=== PATIENT | female | born 1965 | race Caucasian/White ===

== ENCOUNTER 2022-05-20 09:01 | Emergency (ER) | payer OTHER, SELFPAY ==
--- NOTE | ~2022-05-20 | US_ITS ---
EXAMINATION: US abdomen limited DATE: 05/20/2022 10:46 INDICATION: Abdominal pain. Diarrhea. TECHNIQUE: Multiple grayscale and Doppler ultrasound images of the abdomen were obtained. COMPARISON: Chest CT 02/28/2014 FINDINGS: The visualized portions of the head and body of the pancreas are normal. There is diffuse h epatic steatosis. There is normal flow in main portal vein. The gallbladder is normal in size. No gal lstones or gallbladder wall thickening. There is no sonographic Soto sign. The common duct is kenyatta l and measures 5 mm. IMPRESSION: 1. Diffuse hepatic steatosis. Reviewed, dictated and finalized at location A.
--- NOTE | ~2022-05-20 | CT_ITS ---
EXAMINATION: CT abdomen pelvis w con DATE: 05/20/2022 11:09 INDICATION: Upper abdominal pain. TECHNIQUE: Computed tomography (CT) of the abdomen and pelvis was performed with 100 mL Omnipaque 350 intravenous contrast. Automated exposure control and iterative reconstruction technique were employe d. The dose-length product was 935.87 mGy-cm. COMPARISON: CT abdomen and pelvis 01/06/2012 FINDINGS: The visualized portions of the lung bases demonstrate mild atelectasis. No pleural effusion . The heart size is normal. No pericardial effusion. The liver, gallbladder, spleen, pancreas, adrena l glands, and right kidney are normal. There is a 2 mm stone in left kidney. There are no dilated loo ps of bowel. The appendix is normal. There are no pathologically enlarged lymph nodes. There is no fr ee intraperitoneal fluid. There is severe lower lumbar spondylosis. IMPRESSION: 1. Small nonobstructing left kidney stone. Reviewed, dictated and finalized at location A.
[2022-05-20 09:07] VITALS: BP 131/81; PULSE 67; RESP 19; TEMP 36.7; O2SAT 100
[2022-05-20 10:22] LABS: Basophils Percent Auto 0.5 % (0.2-1.2); Eosinophils Absolute Auto 0.2 K/mm3 (0-0.3); Eosinophils Percent Auto 2.9 % (0-4.4); Hematocrit 48.7 % (37.0-47.0); Hemoglobin 15.9 g/dL (12.0-15.0); Immature Granulocyte Absolute 0.01 K/mm3 (0.00-0.031); Immature Granulocyte Percent A 0.2 % (0-0.5); Lymphocytes Absolute Auto 2.03 K/mm3 (0.9-3.2); Lymphocytes Percent Auto 31.5 % (18.3-44.2); Mean Corpuscular HGB Conc 32.6 g/dl (32-36); Mean Corpuscular Hemoglobin 30.3 pg (26-34); Mean Corpuscular Volume 92.9 fl (80-100); Mean Platelet Volume 10.3 fl (7.4-10.4); Monocytes Absolute Auto 0.7 K/mm3 (0.1-0.6); Monocytes Percent Auto 10.1 % (2.6-8.5); Neutrophils Absolute Auto 3.5 K/mm3 (1.3-6.7); Neutrophils Percent Auto 54.8 % (45.5-73.1); Platelet Count Result 244 k/mm3 (150-375); Red Blood Count 5.24 M/mm3 (4.2-5.4); Red Cell Distribution Width 12.3 % (11.5-14.5); White Blood Count 6.5 K/mm3 (4.5-10.0)
--- NOTE | 2022-05-20 10:23 | ED.GENADULT ---
HPI - General Adult General Chief complaint: Abdominal Pain Stated complaint: Abdomen pain Time Seen by Provider: 05/20/22 09:58 Source: RN notes reviewed History of Present Illness HPI narrative: Patient presents emergency department from home for abdominal pain. Patient dates symptoms began 5 days ago. States pain is located in the epigastric region and does not radiate described as sharp and stabbing in nature. States has been associate with nausea vomiting and diarrhea patient states that she has been having ongoing episodes of nausea and vomiting as well as diarrhea throughout the 5 days she states that nothing makes his symptoms better or worse. She denies any fevers or chills chest pain shortness of breath or any other symptoms states she is not taking pain medication today Related Data Allergies Allergy/AdvReac Type Severity Reaction Status Date / Time codeine AdvReac Unknown Nausea and Verified 03/08/22 09:43 Vomiting Review of Systems Review of Systems: Gen.: Denies fevers or chills ENT: Denies congestion Respiratory: Denies shortness of breath or cough CV: Denies chest pain or palpitations GI: See HPI denies burning, urgency, frequency or hematuria Musculoskeletal: Denies back pain or muscle pain Neuro: Denies numbness, tingling, weakness or focal weakness Skin: Denies rash Except as documented, all other systems reviewed and negative [facility] Past Medical History Medical History Anemia Asthma Bronchitis Depression Ear infection Multiple as a child Elevated BP without diagnosis of hypertension HPV (human papilloma virus) infection Peptic ulcer Plantar fasciitis Pneumonia Spontaneous pneumothorax x2 Surgical History Surgical History History of hysterectomy History of surgery on arm rt arm at 6 y/o History of tonsillectomy History of tracheostomy History of tubal ligation Family History Family History Mother Hypertension Family history of primary malignant neoplasm of liver Family history of coronary artery disease Father Family history of coronary artery disease Social History Social History Social History: Smoking status: Never smoker Second hand tobacco smoke exposure: No Alcohol intake: current Alcohol use details: Socially Substance use: never Substance use type: does not use Living arrangements: with family Occupation/Education: occupation Gender identity (if verbalized by the patient): Female Sexual Orientation (if Verbalized by the Patient): Straight or Heterosexual Exam Narrative: APPEARANCE: No acute distress, nontoxic, resting in bed HEENT: Normocephalic, atraumatic, OMM RESPIRATORY: No respiratory distress, clear to auscultation bilaterally with no rhonchi wheezing or rales CARDIOVASCULAR: RRR s murmur ABDOMINAL: Soft nondistended tender palpation epigastric and right upper quadrant no tenderness in left upper quadrant, left lower quadrant and right lower quadrant no rebound or guarding MUSCULOSKELETAl: Moves all extremities. No clubbing, cyanosis or edema. NEURO: Awake and alert. Following commands, speech normal, no focal deficits SKIN:: Warm, dry. Normal Color PSYCHIATRIC: Normal affect/mood Course Course Emergency Course: Patient states pain is greatly improved following IV medication and then resolved following GI cocktail patient states that they are feeling much better at this time. States abdominal pain has resolved. Repeat abdominal exam shows the patient's abdomen to be soft and nontender. Discussed with patient results of workup and diagnosis. Discussed need for follow-up with primary care physician, reasons to return to the emergency department in proper use of medication. Patient understands and agrees to cur
[2022-05-20 10:24] LABS: Appearance Urine Clear (Clear); Bilirubin Urine Negative (Negative); Blood Urine Negative (Negative); Color Urine Yellow (Yellow); Glucose Urine UA Negative (Negative); Ketones Urine Negative (Negative); Leukocyte Esterase Ur Negative LEU/UL (Negative); Nitrate Urine Negative (Negative); Protein Urine Negative (Negative); Specific Grav Ur 1.023 (1.001-1.035); Urobilinogen Urine 0.2 mg/dL (<2.0); pH Urine 5.5 (5.0-9.0)
[2022-05-20 10:31] LABS: Add Urine Microscopic? NO
[2022-05-20 10:41] LABS: Alanine Aminotransferase 70 U/L (6-35); Albumin Level 4.7 g/dL (3.5-5.1); Alkaline Phosphatase 101 U/L (38-126); Anion Gap 6 mmol/L (8-16); Aspartate Amino Transferase 37 U/L (14-36); Bilirubin,Total 0.5 mg/dL (0.2-1.3); Blood Urea Nitrogen 15 mg/dL (7-17); Calcium 9.3 mg/dL (8.4-10.2); Carbon Dioxide 29 mmol/L (22-30); Chloride 108 mmol/L (98-107); Estimated CRCL calculation 78 ml/min; Estimated Glomerular Filt Rate > 60; Glucose 88 mg/dL (65-110); Lipase 80 U/L (23-300); Potassium 3.7 mmol/L (3.4-5.0); Sodium 143 mmol/L (137-145)
[2022-05-20] MEDS: FAMOTIDINE 20 MG/2 ML VIAL IV PUSH (10:45)
[2022-05-20] MEDS: SODIUM CHLORIDE 0.9% IV 1,000 ML 999 ML IV CONT (10:45)
[2022-05-20] MEDS: KETOROLAC 30 MG/ML VIAL (*BKC) IV PUSH (10:45)
[2022-05-20] MEDS: ONDANSETRON INJ 4 MG/2 ML VIAL IV PUSH (10:45)
[2022-05-20 13:07] VITALS: BP 142/87; PULSE 73; RESP 18; O2SAT 100
== END 2022-05-20 13:20 | disposition home or self-care (01) ==
PROVIDERS: Emergency Provider Emergency Medicine; PCP Family Medicine
DX: R10.13 Epigastric pain (principal); R11.2 Nausea with vomiting, unspecified; R19.7 Diarrhea, unspecified; J45.909 Unspecified asthma, uncomplicated; Z79.51 Long term (current) use of inhaled steroids
CPT/HCPCS: 36415; 74177; 76705; 80053; 81003; 83690; 85025; 96361; 96374; 96375; 99284; A9270; J1885; J2405; J7030; Q9967

== ENCOUNTER 2022-08-26 07:48 | Outpatient (CLI) | payer OTHER, SELFPAY ==
--- NOTE | ~2022-08-26 | MM_ITS ---
EXAMINATION: MM screening [facility] BI w laci HISTORY: Screening TECHNIQUE: Craniocaudal and mediolateral oblique 3-D tomosynthesis images were obtained and synthetic 2-D images were generated. CAD analysis was submitted and interpreted. COMPARISON: Comparison to multiple prior studies sequentially, with oldest reviewed study dated 08/2013. BREAST PARENCHYMAL COMPOSITION: Breast composed of scattered areas of fibroglandular density. FINDINGS: There are bilateral benign-appearing breast asymmetries/masses which are diminished in size and density compared with prior examinations. There is no evidence of suspicious mass, calcification , or architectural distortion to suggest malignancy in either breast. There has been no suspicious in terval change. IMPRESSION: 1. No mammographic evidence of malignancy. 2. Recommend routine screening mammography in one year. BI-RADS Category 2: Benign finding(s). Reviewed, dictated and finalized at location A.
== END 2022-08-26 07:49 | disposition home or self-care (01) ==
LOC: ANHIMG 07:50
PROVIDERS: PCP Family Medicine; Visit Provider Physician Assistant
DX: Z12.31 Encounter for screening mammogram for malignant neoplasm of breast (principal)
CPT/HCPCS: 77063; 77067

== ENCOUNTER 2023-01-14 16:48 | Emergency (ER) | payer OTHER, SELFPAY ==
--- NOTE | ~2023-01-14 | CT_ITS ---
EXAMINATION: CT brain wo con DATE: 01/14/2023 21:59 INDICATION: elevated blood pressure, dizziness . TECHNIQUE: Computed tomography (CT) of the head was performed without intravenous contrast. The mA wa s adjusted according to patient size. Iterative reconstruction technique was employed. The dose-lengt h product was 605.33 mGy-cm. COMPARISON: None. FINDINGS: No acute intracranial hemorrhage or extra-axial fluid collection. No hydrocephalus, mass, or herniation. No acute ischemic infarct. Unremarkable dural venous sinus attenuation. No acute osseous abnormality. The aerated spaces are clear. IMPRESSION: No acute intracranial process. Reviewed, dictated and finalized at location K. ZING MACHINE OPERATOR HEAD END
--- NOTE | ~2023-01-14 | XR_ITS ---
EXAMINATION: XR chest 2V Exam Date/Time: 01/14/2023 23:10 TRAUMA DOCTOR HISTORY: dizziness HIGH BP Comparison: 04/11/2014. RESULT: Lines, tubes, and devices: None. Lungs and pleura: Clear. Cardiomediastinal silhouette: Stable. Other: No acute osseous or upper abdominal finding. IMPRESSION: No acute cardiopulmonary process. Reviewed, dictated and finalized at location K. MA DOCTOR
[2023-01-14 16:55] VITALS: BP 142/91; PULSE 69; RESP 20; TEMP 36.1; O2SAT 100
--- NOTE | 2023-01-14 16:59 | ECG_ITS ---
Measurements Intervals [place] Rate: 62 P: 57 MA: 155 QRS: 77 QRSD: 89 T: 80 QT: 413 QTc: 422 Interpretive Statements SINUS RHYTHM LOW QRS VOLTAGE IN PRECORDIAL LEADS [QRS DEFLECTION < 1.0 mV IN CHEST LEADS] NONSPECIFIC T-WAVE ABNORMALITY COMPARED TO ECG 07/20/2018 19:35:06 T-WAVE ABNORMALITY NOW PRESENT Electronically Signed On 01-14-2023 20:23:26 CUTTER INSPECTOR by Opal Handley M.D.
[2023-01-14 21:47] VITALS: BP 148/92; PULSE 62; RESP 18; O2SAT 100
[2023-01-14 22:17] LABS: Basophils Percent Auto 0.4 % (0.2-1.2); Eosinophils Absolute Auto 0.2 K/mm3 (0-0.3); Eosinophils Percent Auto 2.1 % (0-4.4); Hematocrit 42.6 % (37.0-47.0); Hemoglobin 14.1 g/dL (12.0-15.0); Immature Granulocyte Absolute 0.03 K/mm3 (0.00-0.031); Immature Granulocyte Percent A 0.4 % (0-0.5); Lymphocytes Absolute Auto 2.97 K/mm3 (0.9-3.2); Lymphocytes Percent Auto 34.8 % (18.3-44.2); Mean Corpuscular HGB Conc 33.1 g/dl (32-36); Mean Corpuscular Hemoglobin 30.1 pg (26-34); Mean Platelet Volume 10.2 fl (7.4-10.4); Monocytes Absolute Auto 0.8 K/mm3 (0.1-0.6); Monocytes Percent Auto 8.9 % (2.6-8.5); Neutrophils Absolute Auto 4.6 K/mm3 (1.3-6.7); Neutrophils Percent Auto 53.4 % (45.5-73.1); Platelet Count Result 255 k/mm3 (150-375); Red Blood Count 4.68 M/mm3 (4.2-5.4); White Blood Count 8.5 K/mm3 (4.5-10.0)
[2023-01-14 22:27] LABS: Anion Gap 6 mmol/L (8-16); Blood Urea Nitrogen 13 mg/dL (7-17); Calcium 9.3 mg/dL (8.4-10.2); Carbon Dioxide 28 mmol/L (22-30); Chloride 107 mmol/L (98-107); Estimated CRCL calculation 78 ml/min; Estimated Glomerular Filt Rate > 60; Glucose 124 mg/dL (65-110); Potassium 4.1 mmol/L (3.4-5.0); Sodium 141 mmol/L (137-145)
[2023-01-14 22:48] LABS: Troponin I < 0.012 ng/mL (0.000-0.034)
--- NOTE | 2023-01-14 23:06 | ED.RECABL ---
HPI - Recheck/Abnormal Lab/Rx General Chief Complaint: Recheck/Abnormal Lab/Rx Stated Complaint: ELEVATED BP,DIZZINESS Time Seen by Provider: 01/14/23 21:47 Source: patient Mode of arrival: ambulatory Limitations: no limitations History of Present Illness HPI narrative: This is a 57 year old female that presents to the ER for elevated blood pressure. Reports yesterday she started to feel dizzy. She took her blood pressure and it was elevated. Reports she had return of symptoms today with worsening blood pressure which prompted her to be seen. She does not take blood pressure medication regularly. Reports history of a similar occurrence last year, but her blood pressure was monitored and normalized. She did not have to be started on an antihypertensive. Reports no current dizziness or symptoms. Denies chest pain, shortness of breath, or lower extremity edema. Related Data Allergies Allergy/AdvReac Type Severity Reaction Status Date / Time codeine AdvReac Unknown Nausea and Verified 03/08/22 09:43 Vomiting Review of Systems Review of Systems: CONSTITUTIONAL: Denies fever EYES: Denies visual changes CARDIOVASCULAR: Denies chest pain, or edema. RESPIRATORY: Denies dyspnea. GASTROINTESTINAL: Denies vomiting NEUROLOGIC: Denies numbness, or weakness. All systems reviewed & are unremarkable except as noted in HPI and below PMFSH Past Medical History Medical History Anemia Asthma Bronchitis Depression Ear infection Multiple as a child Elevated BP without diagnosis of hypertension HPV (human papilloma virus) infection Peptic ulcer Plantar fasciitis Pneumonia Spontaneous pneumothorax x2 Surgical History Surgical History History of hysterectomy History of surgery on arm rt arm at 6 y/o History of tonsillectomy History of tracheostomy History of tubal ligation Family History Family History Mother Hypertension Family history of primary malignant neoplasm of liver Family history of coronary artery disease Father Family history of coronary artery disease Social History Social History Social History: Smoking status: Never smoker Second hand tobacco smoke exposure: No Alcohol intake: current Alcohol use details: Socially Substance use: never Substance use type: does not use Living arrangements: with family Occupation/Education: occupation Gender identity (if verbalized by the patient): Female Sexual Orientation (if Verbalized by the Patient): Straight or Heterosexual Exam Narrative: GENERAL: Well-appearing, well-nourished, and in no acute distress. HEAD: Normocephalic, atraumatic. EYES: PERRLA and EOMI. ENT: Nares clear, no rhinorrhea or epistaxis. Mucous membranes moist. Oropharynx without tonsillar hypertrophy exudate or other lesions. Bilateral TMs pearly hickman non-bulging NECK: Supple. No adenopathy or masses. No JVD CHEST: Clear to auscultation. No respiratory distress. No wheezes rales or rhonchi HEART: Regular rate and rhythm. No murmur heard. Normal peripheral pulses. EXTREMITIES: Normal range of motion. No edema. SKIN: Warm, dry, no rash. NEURO: No focal deficits. Alert and oriented x3. Cranial nerves 2-12 grossly intact. Normal [id number] PSYCH: Normal mood and affect Course Course Emergency Course: patient and family updated on workup and agree with plan of care Vital Signs Vital signs: Vital Signs Temperature 97 F L 01/14/23 16:55 Pulse Rate 69 01/14/23 16:55 Respiratory Rate 20 01/14/23 16:55 Blood Pressure 142/91 H 01/14/23 16:55 Pulse Oximetry 100 01/14/23 16:55 Oxygen Delivery Room Air 01/14/23 16:55 Temperature 97 F L 01/14/23 16:55 Pulse Rate 62 01/14/23 21:47 Respiratory Rate 18 01/14/23 2
[2023-01-14 23:49] VITALS: BP 138/88; PULSE 72; RESP 16; O2SAT 98
== END 2023-01-14 23:50 | disposition home or self-care (01) ==
PROVIDERS: Emergency Provider Physician Assistant; PCP Family Medicine
DX: R03.0 Elevated blood-pressure reading, without diagnosis of hypertension (principal); D64.9 Anemia, unspecified; J45.909 Unspecified asthma, uncomplicated; F32.A Depression, unspecified
CPT/HCPCS: 36415; 70450; 71046; 80048; 84484; 85025; 93005; 99284

== ENCOUNTER 2023-02-27 09:12 | Outpatient (CLI) | payer OTHER, SELFPAY ==
--- NOTE | ~2023-02-27 | US_ITS ---
EXAMINATION: US carotid duplex BI DATE: 02/27/2023 09:47 INDICATION: Encephalopathy with brain fog . Headache. TECHNIQUE: Grayscale, color Doppler, and pulsed Doppler images of the cervical carotid arteries were obtained. The degree of vessel stenosis is placed in one of the following categories: normal, <50%, 5 0-69%, >=70% but less than near-occlusion, near-occlusion, or total occlusion. Note that percent sten osis relative to normal distal artery lumen diameter is indirectly measured from velocity measurement s as described by Cesario, et al. Radiology 2003; 229:340-346. COMPARISON: None. FINDINGS: RIGHT: The right common carotid artery (CCA) peak systolic velocity (PSV) is 90 cm/s. The right internal car otid artery (ICA) PSV is 105 cm/s. The right ICA end-diastolic velocity (EDV) is 41 cm/s. The right I CA/CCA PSV ratio is 1.2. Grayscale and color Doppler images yield an estimate of <50% diameter reduct ion from plaque in the ICA. The external carotid artery (ECA) PSV is 87 cm/s. There is antegrade flow in the right vertebral artery. LEFT: The left CCA PSV is 114 cm/s. The left ICA PSV is 98 cm/s. The left ICA EDV is 43 cm/s. The left ICA/ CCA PSV ratio is 0.9. Grayscale and color Doppler images yield an estimate of <50% diameter reduction from plaque in the ICA. The ECA PSV is 99 cm/s. There is antegrade flow in the left vertebral artery . IMPRESSION: 1. <50% stenosis in the right internal carotid artery. 2. <50% stenosis in the left internal carotid artery. Reviewed, dictated and finalized at location A. PINNER
--- NOTE | ~2023-02-27 | NM_ITS ---
EXAMINATION: NM arina stress w perfusion DATE: 02/27/2023 12:10 INDICATION: Mixed hyperlipidemia. TECHNIQUE: Rest images were obtained following intravenous administration of 9.6 mCi Tc99m tetrofosmi n (Myoview). The patient was infused intravenously with Lexiscan (regadenoson). Then, 28.8 mCi Tc99m tetrofosmin (Myoview) was administered intravenously, and stress images were obtained. Data was recon structed into short axis and horizontal and vertical long axis SPECT images. Gated SPECT images were also obtained. COMPARISON: None. FINDINGS: There is no definite reversible or fixed perfusion abnormality to suggest ischemia or infar ction. There is no segmental wall motion abnormality. Left ventricular ejection fraction measures 6 6%. IMPRESSION: 1. No definite ischemia or infarct. 2. Normal left ventricular ejection fraction measuring 66%. Reviewed, dictated and finalized at location E. CONCENTRATOR
--- NOTE | 2023-02-27 09:35 | ECHO_ITS ---
Patient Info Name: Consuelo Bhakta Age: 57 years : 1965 Gender: Female Ht: 62 in Wt: 195 lbs BSA: 2.01 m2 HR: 63 bpm BP: 122 / 78 mmHg Technical Quality: Fair Exam Date: 02/27/2023 10:03 AM Exam Location: Echo Lab Patient Status: Outpatient Admit Date: 02/27/2023 Staff Ordering Physician: Sandra Zee PA-C Attending Provider: Sandra Zee PA-C Referring Physician: Saadia POPE; Exam Type: CA echo dop color flow w con Study Info Indications R06.00 - Dyspnea, unspecified Complete two-dimensional, color flow and Doppler transthoracic echocardiogram is performed with contrast to opacify the left ventricle and to improve the deliniation of the left ventricle endocardial borders. Contrast/Agitated Saline Contrast/Ag. Saline: Definity Amount: 1.00 ml Existing IV Access: Yes IV Access Condition: patent with no signs of infiltration Summary 1. Definity contrast administered improved wall motion interpretation. 2. Left ventricular chamber dimension is normal. 3. Left ventricular systolic function is normal, estimated at 60-65%. 4. The left ventricular diastolic function is grade I diastolic dysfunction. 5. E/e' 9 is minimally elevated. 6. Left atrial chamber dimension is mildly enlarged. 7. The aortic valve is not well visualized. Cannot determine number of aortic valve leaflets. 8. There is mild aortic valve stenosis based on a peak velocity of 134.76 cm/s, mean gradient of 4 mmHg, and aortic valve area of 1.91 cm2. Left Ventricle Definity contrast administered improved wall motion interpretation. E/e' 9 is minimally elevated. Left ventricular chamber dimension is normal. Left ventricular systolic function is normal, estimated at 60-65%. The left ventricular diastolic function is grade I diastolic dysfunction. Right Ventricle Right ventricular systolic function is normal and with normal TAPSE 2.0 cm. Right ventricular chamber dimension is normal. Left Atria Left atrial chamber dimension is mildly enlarged. Right Atria Right atrial chamber dimension is normal. Aortic Valve The aortic valve is not well visualized. Cannot determine number of aortic valve leaflets. There is mild aortic valve stenosis based on a peak velocity of 134.76 cm/s, mean gradient of 4 mmHg, and aortic valve area of 1.91 cm2. There is no aortic valve regurgitation. Pulmonic Valve There is no pulmonic regurgitation. Mitral Valve There is no mitral valve stenosis. There is no mitral valve regurgitation. Tricuspid Valve There is no tricuspid valve regurgitation. Pericardium/Pleural There is no pericardial effusion. Inferior Vena Cava Normal inferior vena cava with >50% collapse upon inspiration consistent with normal right atrial pressure, 5 mmHg. Aorta The aortic root size at the sinus of Valsalva is normal. Left Ventricular Outflow Tract Name Value Normal LVOT 2D LVOT Diameter 2.03 cm LVOT Doppler LVOT Peak Velocity 80.52 cm/s LVOT Peak Gradient 3 mmHg LVOT Mean Gradient 1 mmHg LVOT VTI 19.92 cm LVOT VTI/AV VTI Ratio
--- NOTE | 2023-02-27 09:39 | EST_ITS ---
Patient Info Name: Consuelo Bhakta Age: 57 years : 1965 Gender: Female Ht: 62 in Wt: 195 lbs BSA: 2.01 m2 Exam Date: 02/27/2023 11:15 AM Exam Location: Echo Lab Patient Status: Outpatient Admit Date: 02/27/2023 Staff Ordering Physician: Sandra Zee PA-C Attending Provider: Sandra Zee PA-C Exercise Technologist: Anne Marie Olguin RDCS Exercise Physician: Blair Cartagena DO Exam Type: CA stress arina w NM Study Info Indications R07.89 - Other chest pain A treadmill exercise stress test was performed. Summary 1. 1. Negative lexiscan stress test for ischemic ST changes by ECG criteria. 2. 2. Stable hemodynamics throughout the test. 3. 3. Nuclear scan to follow and will be reported separately. Please correlate with it. 4. 4. Patient informed of the above results. Protocol: Lexiscan Stress ECG Details Stage: REST Duration (min): 1 min : 5 sec HR (bpm): 71 SBP (mmHg): 107 DBP (mmHg): 74 Stage: REST Duration (min): 4 min : 26 sec HR (bpm): 71 SBP (mmHg): 107 DBP (mmHg): 74 Stage: STAGE 1 Duration (min): 1 min : 0 sec HR (bpm): 106 SBP (mmHg): 114 DBP (mmHg): 75 Stage: RECOVERY Duration (min): 1 min : 0 sec HR (bpm): 115 SBP (mmHg): 126 DBP (mmHg): 74 Stage: RECOVERY Duration (min): 2 min : 0 sec HR (bpm): 108 SBP (mmHg): 126 DBP (mmHg): 74 Stage: RECOVERY Duration (min): 3 min : 0 sec HR (bpm): 102 SBP (mmHg): 119 DBP (mmHg): 74 Stage: RECOVERY Duration (min): 4 min : 0 sec HR (bpm): 97 SBP (mmHg): 119 DBP (mmHg): 74 Stage: RECOVERY Duration (min): 4 min : 40 sec HR (bpm): 94 SBP (mmHg): 111 DBP (mmHg): 72 Rest HR: 71 bpm Peak HR: 115 bpm Rest Sys BP: 107 mmHg Peak Sys BP: 126 mmHg Max Pred HR: 162 bpm % Max Pred HR: 71 % Target HR: 138 bpm Max RPP: 14,490 bpm*mmHg Termination Reason: Completed protocol Cardiac Symptoms: Shortness of breath Total Time: 1 min : 0 sec Rest [place] BP: 74 mmHg Peak [place] BP: 74 mmHg Total Dose: 0.4 mg Resting ECG Sinus rhythm. Stress ECG No ST changes. Arrhythmias None. Report Signatures
[2023-02-27] MEDS: PERFLUTREN LIPID MICROSPHERES 1.5 ML VIAL DILUTED TO 10 ML TOTAL VOLUME IV PUSH (14:07)
--- NOTE | 2023-03-06 09:16 | IVDEFINITY ---
Prior to administration of IV Definity the patient was educated on the risks and benefits of the imaging enhancing agent including potential adverse side effects. The patient verbalized understanding. Allergies were verified. No exclusion criteria were identified and at least one of the following inclusion criteria were met: 1) physician request, 2) patient technically difficult to image (per the [place] [employer] Echocardi[employer] guidelines of two or more segments not discernable within the apical view), or 3) questionable left ventricular function. ?
== END 2023-02-27 09:13 | disposition home or self-care (01) ==
LOC: ANHIMG 09:15
PROVIDERS: PCP Family Medicine; Visit Provider Physician Assistant
DX: R06.09 Other forms of dyspnea (principal); R51.9 Headache, unspecified; E78.2 Mixed hyperlipidemia; R03.0 Elevated blood-pressure reading, without diagnosis of hypertension; I65.23 Occlusion and stenosis of bilateral carotid arteries
CPT/HCPCS: 78452; 93017; 93880; A9502; C8929; J2785; Q9957

== ENCOUNTER 2024-11-12 12:51 | Outpatient (CLI) | payer OTHER, SELFPAY ==
--- NOTE | ~2024-11-12 | MM_ITS ---
EXAMINATION: MM screening [facility] BI w laci HISTORY: Screening TECHNIQUE: Craniocaudal and mediolateral oblique 3-D tomosynthesis images were obtained and synthetic 2-D images were generated. CAD analysis was submitted and interpreted. COMPARISON: Comparison to multiple prior studies sequentially, with oldest reviewed study dated 10/28/2014. BREAST PARENCHYMAL COMPOSITION: Not dense: There are scattered areas of fibroglandular density. FINDINGS: There is no evidence of suspicious mass, calcification, or architectural distortion to suggest malignancy in either breast. There has been no suspicious interval change. IMPRESSION: 1. No mammographic evidence of malignancy. 2. Recommend routine screening mammography in one year. BI-RADS Category 1: Negative Reviewed, dictated and finalized at location B.
--- OUTSIDE RECORDS SUMMARY | 2024-11-12 12:58 | XMS_ITS | Encounter Summary ---
Author Organization [facility] Address [address] [place] [address] Phone Care Team Providers Care Pedorthist Name Role Phone Perfecto Quinones MD Primary Care Provider Encounter Details Date Type Department Care Team (Latest Contact Info) Description 12/16/2016 Orders Only [facility] CONVERSION Scanning, Provider Social History Tobacco Use Types Packs/Day Years Used Date Smoking Tobacco: Never Comments Unknown Sex and Gender Information Value Date Recorded Sex Assigned at Not on file Legal Sex Female 3:46 AM PROOF CARRIER Gender Identity Not on file Sexual Orientation Not on file documented as of this encounter Plan of Treatment Not on file documented as of this encounter Procedures Procedure Name Priority Date/Time Associated Diagnosis Comments PULMONARY FUNCTION TEST (PFT) 12/16/2016 1:09 PM PROOF CARRIER documented in this encounter Results * PULMONARY FUNCTION TEST (PFT) (12/16/2016 1:09 PM PROOF CARRIER) Anatomical Region Laterality Modality PFT us Provider Scanning PFT ORDERABLES Final Result documented in this encounter Visit Diagnoses Not on filedocumented in this encounter Care Teams Pedorthist Relationship Specialty Start Date End Date Perfecto Quinones MD [address] [place] [address] PCP - General 08/20/16 documented as of this encounter
--- OUTSIDE RECORDS SUMMARY | 2024-11-12 12:58 | XMS_ITS | Clinical Summary ---
Author Organization [facility] Address [address] [place] [address] Care Team Providers Care Plastic Tile Setter Name Role Phone Perfecto Quinones MD Primary Care Provider Allergies Active Allergy Reactions Criticality Noted Date Comments Albuterol Anxiety Low 11/10/2014 Codeine Other (See comments) Low 11/10/2014 Medications levalbuterol (XOPENEX HFA) 45 mcg/actuation inhaler Inhale 2 puffs 4 (four) times a day as needed for wheezing or shortness of breath 1 Inhaler 3 9 Active loratadine (CLARITIN) 10 mg tablet take one tablet by mouth every day 6 Active multivitamin,tx -qmdu-Jw-FD-min 27-0.4 mg tablet Take by mouth Active levalbuterol (XOPENEX) 0.63 mg/3 mL nebulizer solution Inhale 1 ampule every 30 minutes as needed Active pantoprazole DR (PROTONIX) 40 mg EC tablet TK 1 T PO D 1 9 Active fluticasone propionate (FLOVENT HFA) 220 mcg/actuation inhalerIndicati ons:Maintenance Therapy for Asthma Inhale 2 puffs 2 (two) times a day Rinse mouth with water after use. Do not swallow. 1 Inhaler 11 9 Active Active Problems Problem Noted Date Diagnosed Date Allergic rhinitis 08/25/2018 Allergic rhinitis due to pollen 01/26/2016 Asthma Immunizations Immunization Administration Dates Next Due Influenza, Quadrivalent, Paula l Culture-based MDCK, Preservative Free, Antibiotic Free, Intramuscular 02/25/2019 Pneumococcal Polysaccharide PPV23 02/25/2019 Family History Medical History Relation Name Comments Heart disease Father Stroke Father Cancer Mother Diabetes Mother Heart disease Mother Thyroid disease Mother Relation Name Status Comments Father Mother Social History Tobacco Use Types Packs/Day Years Used Date Smoking Tobacco: Never Smokeless Tobacco: Never Personal Safety Answer Date Recorded Getting School Help Needed Not on file 04/11 Comments Unknown Sex and Gender Information Value Date Recorded Sex Assigned at Not on file Legal 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 Gender Identity Not on file Sexual Orientation Not on file Obstetrics History Last Filed Vital Signs Vital Sign Reading Time Taken Comments Blood Pressure 110/74 05/06/2022 6:43 PM CDT Pulse 63 05/06/2022 6:43 PM CDT Temperature 36.8 C (98.2 F) 05/06/2022 6:43 PM CDT Respiratory Rate 22 05/06/2022 6:43 PM CDT Oxygen Saturation 98% 05/06/2022 6:43 PM CDT Inhaled Oxygen Concentration - - Weight 88.5 kg (195 lb) 05/06/2022 6:43 PM CDT Height 157.5 cm (5' 2) 05/06/2022 6:43 PM CDT Body Mass Index 35.67 05/06/2022 6:43 PM CDT Plan of Treatment Health Maintenance Due Date Last Done Comments Breast Cancer Screening-Mammogram 1964 Cervical Cancer Screening 1964 Colon Cancer Screening-Colonoscopy 1964 Depression Screening 1964 Hepatitis C Screening 1964 Hepatitis B Screening 1982 Regular Well Visit/Exam 18-64 1982 Zoster Vaccine (1 of 2) 2014 Pneumococcal vaccine <65 (3 of 3 - PCV20 or PCV21) 02/26/2024 02/25/2019, 12/12/2016 Influenza Vaccine (#1) 2024 , 11/02/2017, 12/12/2016, Additional history exists DTaP/Tdap/Td Vaccine (2 - Td or Tdap) 08/17/2026 08/17/2016 Insurance [facility] [id number] [facility] [id number] [facility] Care Teams Plastic Tile Setter Relationship Specialty Start Date End Date Perfecto Quinones MD [address] [place] [address] PCP - General 08/20/16
--- OUTSIDE RECORDS SUMMARY | 2024-11-12 12:58 | XMS_ITS | Clinical Summary ---
Author Organization [facility] Address [address] [place] [address] Care Team Providers Care Liquor Stores [employer] Agencies Supervisor Name Role Phone Perfecto Quinones MD Primary Care Provider [phone] Source Comments [facility],non-owned Affiliates and Associated Physician Practices is amultiple site organization consisting of ambulatory clinics and hospital sitesin [place], [place], [place] and [place]. This disclosure is being madepursuant to the Care Everywhere program and may not contain all information available regarding this patient. Last updated 17.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 Gender Identity Not on file Sexual Orientation Not on file Plan of Treatment Health Maintenance Due Date Last Done Comments COLOGUARD (AGES 45-75) - COL ON CA SCREENING 1964 COLON MONITORING 1964 COLONOSCOPY - COLON CA SCREENING 1964 CT COLONOGRAPHY - COLON CA SCREENING 1964 Colorectal Cancer Screening 1964 FIT - COLON CA SCREENING 1964 FLEX SIG - COLON CA SCREENING 1964 LIPID TESTING 1964 MAMMOGRAM 1964 HIV SCREENING 07/06/1979 HEPATITIS C SCREENING 07/01/1982 DTAP/TDAP/TD VACCINES (1 - Tdap) 07/06/1983 PAP SMEAR 1985 PNEUMOCOCCAL VACCINE 50+ (1 of 1 - PCV) 2014 ZOSTER VACCINE (1 of 2) 2014 DEPRESSION SCREENING 02/11/2024 COVID-19 VACCINE (1 - 2023-2 5 season) 2024 INFLUENZA VACCINE (#1) 2024 Respiratory Syncytial Virus (RSV) Vaccine Pt: or over 60 yrs (1 - 1-dose 75+ series) 07/06/2039 HEPATITIS B VACCINE Aged Out No longe r eligible based on patient's age to complete this topic HIB VACCINE Aged Out No longer eligi ble based on patient's age to complete this topic HPV VACCINE Aged Out No longer eligi ble based on patient's age to complete this topic MENINGOCOCCAL (Group B) VACC INE SHARED DECISION-MAKING Aged Out No longer eligibl e based on patient's age to complete this topic MENINGOCOCCAL GROUPS A/C/Y/W VACCINE Aged Out No longer eligible b ased on patient's age to complete this topic Insurance [employer] Care Teams Liquor Stores [employer] Agencies Supervisor Relationship Specialty Start Date End Date Perfecto Quinones MD [address] [place] [address] PCP - General 11/26/11
--- OUTSIDE RECORDS SUMMARY | 2024-11-12 12:58 | XMS_ITS | Encounter Summary ---
Author Organization [facility] Address [address] [place] [address] Care Team Providers Care Checker Cashier Name Role Phone Perfecto Quinones MD Primary Care Provider [phone] Encounter Details Date Type Department Care Team (Late st Contact Info) Description 04/04/2023 Lab Requisition [facility] - DermPath Lab [address] [place] [id number] Ankit Tracey MD [facility] DERMATOLOGY [address] [place] [phone] Neoplasm of uncertain behavior of skin Social History Tobacco Use Types Packs/Day Years Used Date Smoking Tobacco: Never Assessed Comments Unknown Sex and Gender Information Value Date Recorded Sex Assigned at Not on file Legal Sex Female 6:51 PM LABORER RAGS Gender Identity Not on file Sexual Orientation Not on file documented as of this encounter Plan of Treatment Not on file documented as of this encounter Procedures Procedure Name Priority Date/Time Associated Diagnosis Comments DERMATOPATHOLOGY Routine 04/04/2023 3:33 AM LABORER RAGS Neoplasm of uncertain behavior of skin documented in this encounter Results * DERMATOPATHOLOGY (04/04/2023 3:33 AM LABORER RAGS) Case Report Dermatopathology Report Case: [id number] Authorizing Provider: Ankit Tracey MD Collected: 04/04/2023 03:33 AM Ordering Location: [facility] DermPath Lab Received: 04/07/2023 01:41 PM Pathologist: Rachael Solitario MD Specimen: Skin, right upper back 11:45 AM [facility] DERMATOPATHOLOGY LABORATORY Final Diagnosis Specimen A. 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 The specimen consists of a shave biopsy measuring 7x6x1 mm. Jar 0. 4 11:45 AM [facility] DERMATOPATHOLOGY LABORATORY Microscopic Description Specimen A. SKIN, right upper back: There is a diffuse infiltrate of histiocytes, some of which have foamy cytoplasm. In addition, there are scattered Touton giant cells. 4 11:45 AM [facility] DERMATOPATHOLOGY LABORATORY Disclaimer An external and internal positive and negative controls are appropriate for the histochemical, immunohistochemical and immunofluorescence stain(s) in this case (if any), except where stated explicitly. The performance characteristics of the stain(s) cited in this report were developed and its performance characteristic determined by the Dermatopathology Laboratory at [facility], directed by Dr. Cyndie Solitario. These tests need not be, and therefore are not, approved by the [place] Food and Drug Administration. The tests are used for clinical purposes. Billing Codes Specimen Charges Stain Charges 67583 1 4 11:45 AM [facility] DERMATOPATHOLOGY LABORATORY Embedded Images 4 11:45 AM [facility] DERMATOPATHOLOGY LABORATORY Pathology/Cytolo gy TISSUE SPECIMEN FROM SKIN / Unknown 04/04/2023 3:33 AM LABORER RAGS 04/07/2023 1:41 PM LABORER RAGS us Ankit Tracey MD LAB - PATHOLOGY/CYTOLOGY DAMIEN GAONA Final Result DERMATOPATHOLOGY LABORATORY [facility] - Department of Dermatology [facility] Medicine [address] [place] [address], [address] [place] [address], [facility] [phone] documented in this encounter Visit Diagnoses Diagnosis Neoplasm of uncertain behavior of skin documented in this encounter Care Teams Checker Cashier Relationship Specialty Start Date End Date Perfecto Quinones MD [address] [place] [address] PCP - General 11/26/11 documented as of this encounter
== END 2024-11-12 12:52 | disposition home or self-care (01) ==
LOC: CHSIMG 12:52
PROVIDERS: PCP Family Medicine; Visit Provider Family Medicine
DX: Z12.31 Encounter for screening mammogram for malignant neoplasm of breast (principal)
CPT/HCPCS: 77063; 77067